=== PATIENT | female | born 1990 | race African-American/Black ===

== ENCOUNTER 2023-10-13 14:30 | Emergency (ER) | payer OTHER ==
[~2023-10-13] VITALS: Ht 160 cm; Wt 68.2 kg
[2023-10-13 15:01] VITALS: TEMP 98.1
[2023-10-13] MEDS: KETOROLAC TROMETHAMINE 60 MG/2 ML VIAL IM ONE (18:29)
[2023-10-13] MEDS: METHOCARBAMOL 500 MG TABLET PO ONE (18:30)
[2023-10-13] MEDS ORDERED: IBUP-1554 PO (19:33)
[2023-10-13] MEDS ORDERED: METH-659 PO (19:33)
[2023-10-13 19:39] VITALS: BP 129/74; PULSE 79; RESP 16
== END 2023-10-13 19:41 | disposition home or self-care (01) ==
LOC: EMS 14:30
DX: M62.838 Other muscle spasm (principal)
CPT/HCPCS: 99283; 73030; 96372; J1885